=== PATIENT | female | born 1955 | race Caucasian/White ===

== ENCOUNTER → 2021-07-18 14:52 | Outpatient (CLI) | payer OTHER, SELFPAY ==
--- NOTE | 2021-07-18 | DI.MG.S_ITS ---
BILATERAL DIGITAL SCREENING MAMMOGRAM 3D/2D WITH CAD: 07/18/2021 CLINICAL: Routine screening. Family history of breast cancer. Comparison is made to exams dated: 10/29/2017 mammogram, 07/30/2016 mammogram, and 04/12/2015 mammogram - outside facility. The tissue of both breasts is predominantly fatty. Current study was also evaluated with a Computer Aided Detection (CAD) system. No significant masses, calcifications, or other findings are seen in either breast. There has been no significant interval change. IMPRESSION: NEGATIVE There is no mammographic evidence of malignancy. A 1 year screening mammogram is recommended. This exam was interpreted at Station ID: [id number]. NOTE: For mammograms, a report in lay terms will be sent to the patient. Approximately 15% of breast malignancies will not be visualized mammographically. In the management of a palpable breast mass, a negative mammogram must not discourage biopsy of a clinically suspicious lesion. Electronically Signed By: Zay Daly acr/penrad:07/18/2021 15:25:25 letter sent: Normal Exam ACR BI-RADS Category 1: Negative 3341F
== END ==
PROVIDERS: PCP Internal Medicine; Referring Provider Internal Medicine; Visit Provider Internal Medicine
DX: Z12.31 Encounter for screening mammogram for malignant neoplasm of breast (principal); Z78.0 Asymptomatic menopausal state; M81.0 Age-related osteoporosis without current pathological fracture; Z80.3 Family history of malignant neoplasm of breast
CPT/HCPCS: 77063; 77067; 77080

== ENCOUNTER → 2022-08-21 11:28 | Outpatient (CLI) | payer OTHER, SELFPAY ==
--- NOTE | 2022-08-21 | DI.MG.S_ITS ---
BILATERAL DIGITAL SCREENING MAMMOGRAM 3D/2D WITH CAD: 08/21/2022 CLINICAL: Routine screening. Family history of breast cancer. Comparison is made to exams dated: 07/18/2021 mammogram - [facility], 10/29/2017 mammogram, and 07/30/2016 mammogram - outside facility. There are scattered areas of fibroglandular density in both breasts (category b / 25%-50% glandular tissue). Current study was also evaluated with a Computer Aided Detection (CAD) system. No significant masses, calcifications, or other findings are seen in either breast. There has been no significant interval change. IMPRESSION: NEGATIVE There is no mammographic evidence of malignancy. A 1 year screening mammogram is recommended. Based on the Tyrer Cuzick model (a risk assessment model) the patient's lifetime risk is 4.1% and her 10 year risk is 2.4%. According to the ACR, ACS, and NCCN guidelines, an annual breast MRI exam along with mammogram is recommended if the patient's lifetime risk is 20% or greater. This exam was interpreted at Station ID: [id number]. NOTE: For mammograms, a report in lay terms will be sent to the patient. Approximately 15% of breast malignancies will not be visualized mammographically. In the management of a palpable breast mass, a negative mammogram must not discourage biopsy of a clinically suspicious lesion. Electronically Signed By: Dakota myers/darling:08/21/2022 16:02:46 letter sent: Normal Exam ACR BI-RADS Category 1: Negative 3341F
== END ==
PROVIDERS: Referring Provider Internal Medicine; Visit Provider Internal Medicine
DX: Z12.31 Encounter for screening mammogram for malignant neoplasm of breast (principal); Z80.3 Family history of malignant neoplasm of breast
CPT/HCPCS: 77063; 77067

== ENCOUNTER → 2023-07-12 10:01 | Outpatient (CLI) | payer OTHER, SELFPAY ==
--- NOTE | 2023-07-12 10:03 | DI.RAD.S_ITS ---
Bone Density Report Name: ANTONIO ROSE Age: 68 Sex: Female Ethnicity: White Date of : 1955 Indication: postmenopausal osteoporosis; monitoring treatment; Referring Provider: JAMA WONG Study: Bone densitometry was performed. Exam Date: July 12, 2023 Accession number: [id number] Bone Density: Region BMD T-score Z-score Classification AP Spine(L1, L2, L3) 0.737 -2.6 -0.5 Osteoporosis Femoral Neck (Left) 0.721 -1.2 0.6 Osteopenia Total Hip (Left) 0.802 -1.1 0.4 Osteopenia Femoral Neck (Right) 0.639 -1.9 -0.1 Osteopenia Total Hip (Right) 0.798 -1.2 0.3 Osteopenia Total Hip Mean 0.800 -1.2 0.4 Osteopenia World Health Organization criteria for BMD impression classify patients as: Normal (T-score at or above -1.0), Osteopenia (T-score between -1.0 and -2.5), or Osteoporosis (T-score at or below -2.5). 10-year Fracture Risk: FRAX not reported because: Some T-score for Spine Total or Hip Total or Femoral Neck at or below -2.5 Treated for osteoporosis Previous Exams: -- Region Exam Age BMD T-score BMD Change BMD Change Date g/cm2 vs Baseline vs Previous -- AP Spine (L1-L3) 07/12/2023 68 0.737 -2.6 0.019 (2.6%)# 0.019 (2.6%)# 07/18/2021 66 0.718 -2.7 Total Hip(Left) 07/12/2023 68 0.802 -1.1 -0.003 (-0.4%)# -0.003 (-0.4%)# 07/18/2021 66 0.805 -1.1 Total Hip(Right) 07/12/2023 68 0.798 -1.2 0.011 (1.4%)# 0.011 (1.4%)# 07/18/2021 66 0.787 -1.3 -- *Denotes significance at 95% confidence level, LSC for AP Spine = 0.022 g/cm2, LSC for Total Hip = 0.027 g/cm2 # Denotes dissimilar scan types or analysis methods Impression: The patient has osteoporosis, based on the Total Spine T-score. No significant bone loss was observed. Discussion: PATIENT UNDER TREATMENT WITH NO SIGNIFICANT BMD LOSS SINCE LAST EXAM. In an untreated patient, BMD typically declines with age. A lack of decline or gain is usually a sign that treatment is efficacious and fracture risk is reduced. It is important to ask patients whether they are taking their medications and to encourage continued and appropriate compliance with their osteoporosis therapies to reduce fracture risk. It is also important to review their risk factors and encourage appropriate calcium and vitamin D intakes, exercise, fall prevention and other lifestyle measures. Follow-Up: Consider a repeat BMD and Vertebral Fracture Assessment (VFA) exam in 2 years or sooner if medically necessary, to reassess this patient's status. Reported by: LYNN OJEDA M.D. on 07/12/2023 10:30:00 AM.
== END ==
LOC: RAD 10:02
PROVIDERS: Referring Provider Internal Medicine; Visit Provider Internal Medicine
DX: M81.0 Age-related osteoporosis without current pathological fracture (principal)
CPT/HCPCS: 77080

== ENCOUNTER → 2023-09-02 14:02 | Outpatient (CLI) | payer OTHER, SELFPAY ==
--- NOTE | 2023-09-02 14:03 | DI.MG.S_ITS ---
BILATERAL DIGITAL SCREENING MAMMOGRAM 3D/2D WITH CAD: 09/02/2023 CLINICAL: Routine screening. Family history of breast cancer. Comparison is made to exams dated: 08/21/2022 mammogram, 07/18/2021 mammogram - [facility], and 10/29/2017 mammogram - outside facility. There are scattered areas of fibroglandular density in both breasts (category b / 25%-50% glandular tissue). Current study was also evaluated with a Computer Aided Detection (CAD) system. No significant masses, calcifications, or other findings are seen in either breast. There has been no significant interval change. IMPRESSION: NEGATIVE There is no mammographic evidence of malignancy. A 1 year screening mammogram is recommended. Based on the Tyrer Cuzick model (a risk assessment model) the patient's lifetime risk is 3.9% and her 10 year risk is 2.4%. According to the ACR, ACS, and NCCN guidelines, an annual breast MRI exam along with mammogram is recommended if the patient's lifetime risk is 20% or greater. This exam was interpreted at Station ID: [id number]. NOTE: For mammograms, a report in lay terms will be sent to the patient. Approximately 15% of breast malignancies will not be visualized mammographically. In the management of a palpable breast mass, a negative mammogram must not discourage biopsy of a clinically suspicious lesion. Electronically Signed By: Irina Shaw M.D., PH.D rissa/darling:09/02/2023 22:39:04 letter sent: Normal Exam ACR BI-RADS Category 1: Negative 3341F
== END ==
LOC: MAMMO 14:02
PROVIDERS: PCP Internal Medicine; Referring Provider Internal Medicine; Visit Provider Internal Medicine
DX: Z12.31 Encounter for screening mammogram for malignant neoplasm of breast (principal); Z80.3 Family history of malignant neoplasm of breast; R92.323 Mammographic fibroglandular density, bilateral breasts
CPT/HCPCS: 77063; 77067

== ENCOUNTER → 2024-09-12 16:00 | Outpatient (CLI) | payer MEDICARE, SELFPAY ==
--- NOTE | 2024-09-12 16:02 | DI.MG.S_ITS ---
MM screening mammo BI: 09/12/2024. BI-RADS: 1 CLINICAL: 69-year old female for bilateral screening mammogram. Tyrer-Cuzick lifetime risk of 3.1%. No personal or first-degree family history of breast cancer. PRIOR EXAMS 09/02/2023, 08/21/2022, 07/18/2021. MAMMOGRAPHY TECHNIQUE: 2D and 3D (tomosynthesis) digital mammographic views obtained, with additional images as needed for full coverage. Current study was also evaluated with a Computer Aided Detection (CAD) system. DENSITY B. There are scattered areas of fibroglandular density. MAMMOGRAPHY FINDINGS Bilateral: No suspicious mass, asymmetry, microcalcification, or other abnormality seen. No significant change from comparison. IMPRESSION: * No evidence of malignancy. RECOMMENDATIONS Bilateral * Annual screening mammography. OVERALL ASSESSMENT CATEGORY BI-RADS-1: Negative. The [employer] recommends annual screening mammography beginning at age 40 for women with average risk of breast cancer. ELECTRONICALLY SIGNED: Stephanie Miller M.D. on 09/13/2024 at 08:38:53 AM PT Interpreting Station ID: [id number]
== END ==
LOC: MAMMO 16:01
PROVIDERS: PCP Internal Medicine; Referring Provider Internal Medicine; Visit Provider Internal Medicine
DX: Z12.31 Encounter for screening mammogram for malignant neoplasm of breast (principal)
CPT/HCPCS: 77063; 77067